=== PATIENT | female | born 1940 | race Caucasian/White ===

== ENCOUNTER 2017-11-08 05:00 | Inpatient (IN) | payer MEDICARE, BC ==
--- NOTE | 2017-11-08 05:53 | ED ---
Chest Pain HPI - General Chief Complaint: Chest Pain Stated Complaint: Cardiac Issues Time Seen by Provider: 11/08/17 05:06 Source: EMS Mode of arrival: EMS Limitations: no limitations - History of Present Illness Initial Comments: 77 years old female had a chest pain today, mid abdomen after she moved into fridge at home where he was hurting him anterior chest it was radiating down the arm and was radiating up the neck and initially she thought it was some muscle pain or the Hoffmann and she was seen at [facility] they did the troponin was elevated then they noticed that she had a pulmonary edema with the answer respiratory distress they gave her) as well as diuresed her was transferred him here to see the cardiology on arrival to the ER she is not feeling she is not having any chest pain she said a lot better oxygen saturation is fine and reactive system is unremarkable - Related Data Allergies Allergy/AdvReac Type Severity Reaction Status Date / Time codeine Allergy Unknown Verified 11/08/17 05:17 Review of Systems ROS Statement: Those systems with pertinent positive or pertinent negative responses have been documented in the HPI. ROS Other: All systems not noted in ROS Statement are negative. Past Medical History Past Medical History: Hyperlipidemia History of Any Multi-Drug Resistant Organisms: None Reported Past Surgical History: Cholecystectomy, Hysterectomy Past Psychological History: No Psychological Hx Reported Smoking Status: Former smoker Past Alcohol Use History: None Reported Past Drug Use History: None Reported General Exam - General Exam Comments Initial Comments: General: The patient is awake and alert, in no distress, and does not appear acutely ill. Skin: Skin is warm and dry and no rashes or lesions are noted. Eye: Pupils are equal, round and reactive to light, extra-ocular movements are intact; there is normal conjunctiva bilaterally. Ears, nose, mouth and throat: There are moist mucous membranes and no oral lesions. Neck: The neck is supple, there is no tenderness or JVD. Cardiovascular: There is a regular rate and rhythm. No murmur, rub or gallop is appreciated. Noticed tachycardia heart rate was 108 at the time of exam Respiratory: To auscultation bilateral, it is crackles at the both bases Gastrointestinal: Soft, non-distended, non-tender abdomen without masses or organomegaly noted. There is no rebound or guarding present. Bowel sounds are unremarkable. Back: There is no tenderness to palpation in the midline. There is no obvious deformity. Musculoskeletal: Normal ROM, no tenderness, There is no pedal edema. There is no calf tenderness or swelling. No cords were appreciated. Neurological: CN II-XII intact, Cranial nerves III through XII are intact. There are no obvious motor or sensory deficits. Coordination appears grossly intact. Speech is normal. Psychiatric: Cooperative, appropriate mood & affect, normal judgment. Limitations: no limitations Course Vital Signs 11/08/17 11/08/17 05:12 05:17 Temperature 100.4 F H Pulse Rate 108 H Respiratory 18 18 Rate Blood Pressure 199/66 O2 Sat by Pulse 97 Oximetry Disposition Clinical Impression: Myocardial infarction, Pulmonary edema Disposition: ADMITTED IP TO THIS HOSP Condition: Good Referrals: Tip Peters MD [Primary Care Provider] - 1-2 days
[2017-11-08] MEDS ORDERED: MORPHINE SULFATE 4 MG/ML SYRINGE IVP PRN (05:54)
[2017-11-08] MEDS ORDERED: NITROGLYCERIN SL TABS 0.4 MG TAB SUBLINGUAL PRN (05:54)
--- NOTE | 2017-11-08 06:12 | XR ---
EXAM: XR Chest, 1 View CLINICAL HISTORY: Pain. TECHNIQUE: Frontal view of the chest. COMPARISON: No relevant prior studies available. FINDINGS: Lungs: Mild opacities in the lower lungs (R>L). Lungs otherwise appear overall clear. Pleural space: No significant pleural effusion. No pneumothorax. Heart: Normal cardiac silhouette size. Mediastinum: Unremarkable. No mediastinal widening. Bones/joints: Osseous structures appear intact. IMPRESSION: Mild opacities in the lower lungs (R>L), possibly atelectasis, infiltrates, edema or other process. Lungs otherwise appear overall clear. Correlate clinically.
[2017-11-08] MEDS: HEPARIN SOD,PORK IN 0.45% NACL 25,000 UNIT in 0.45% NACL 1 500ML.BAG IV SCH (06:20)
[2017-11-08] MEDS: ACETAMINOPHEN TAB 500 MG TAB PO PRN (07:25)
[2017-11-08] MEDS: ASPIRIN 325 MG TAB PO SCH (08:26)
[2017-11-08] MEDS: METOPROLOL TARTRATE 25 MG TAB PO SCH ×2 (08:31→22:23)
[2017-11-08] MEDS ORDERED: LISINOPRIL 10 MG TAB PO SCH (09:00)
[2017-11-08 12:51] LABS: Troponin I 3.03 ng/mL (0.000-0.034)
[2017-11-08] MEDS ORDERED: IV FLUID CONTINUATION 1,000 ML IV ONE (14:15)
[2017-11-08] MEDS ORDERED: LIDOCAINE 2% INJ 20 MG/ML SQ ONE (14:18)
[2017-11-08] MEDS ORDERED: fentaNYL (PF) 50 MCG/ML 2 ML AMP IVP ONE (14:20)
[2017-11-08] MEDS ORDERED: MIDAZOLAM 2 MG/2 ML VIAL IVP ONE (14:20)
[2017-11-08] MEDS ORDERED: IOPAMIDOL-370 125ML BTL INJ ONE (14:52)
[2017-11-08] MEDS ORDERED: RX INFO: IV CONTRAST WAS GIVEN 1 EACH MISC MISCELLANE PRN (15:00)
--- NOTE | 2017-11-08 15:21 | CONS ---
CONSULTATION Mrs. Barone is a 77-year-old female, who is seen for cardiac evaluation. This patient was transferred from [facility]. 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 She thought it was a kind of muscle pain. Patient was seen in the emergency room at [facility]. Patient's initial troponin was mildly elevated. Chest x-ray was suggestive of questionable pneumonia or heart failure. She was given Lasix and subsequently patient had some problem with low blood pressure and she was transferred over here. At present, patient is breathing comfortably. The patient has a history of hypertension. She denies any history of angina or myocardial infarction. This patient gives a history that she had a cardiac catheterization done years several years ago which was normal. PAST MEDICAL HISTORY: Includes history of cholecystectomy, hysterectomy and hyperlipidemia. The patient is a former smoker. ALLERGIES: CODEINE. HOME MEDICATIONS: Include lisinopril 10 mg daily. Calcium vitamin, D3 and ascorbic acid. PHYSICAL EXAMINATION: At present reveals a 77-year-old female, who does not appear to be in any acute distress. Blood pressure is 108/75 mmHg. Oxygen saturation is 96%. The patient had a temperature of 100.1 in the emergency room. HEENT examination is negative. Neck is supple. There is no increase in jugular venous pressure. Both the carotid pulses are felt. There is no bruit. Chest is symmetrical. Heart: The PMI is not felt. First and second heart sounds are normal. There is no evidence of any murmur. Lungs reveals bilateral basal rales. Abdomen is soft. Liver and spleen are not enlarged. Bowel sounds heard. Extremities: Peripheral pulses are not well felt. EKG does not show any significant ST ischemic changes. Chest x-ray suggestive of possible mild congestive cardiac failure. The patient's proBNP level was elevated. Initial troponin was 0.6. The second troponin done here is 3.1. FINAL IMPRESSION: This patient is admitted with chest pain. The patient's troponin is elevated suggestive of acute coronary syndrome associated with mild heart failure. EKG does not show any acute ischemic changes. PLAN: We will check a D-dimer test as well as echocardiogram and the patient was recommended to have a cardiac catheterization for definitive diagnosis. MMODL / IJN: [id number] /
--- NOTE | 2017-11-08 16:48 | CC ---
CARDIAC CATHETERIZATION REPORT Mrs. Barone is a 77-year-old female, who was transferred from the [facility] because of the symptoms of shortness of breath and chest pain. The patient's initial troponin and BNP levels were elevated at [facility]. EKG did not show any significant abnormality. The patient has opted for the 2nd troponin was here 3. EKG was normal. Echocardiogram showed evidence of extensive anterior apical inferior apical hypokinesia. Only the basal segments are moving raising a possibility of takotsubo syndrome. In view of the abnormal troponin, the patient was recommended to have a cardiac catheterization for definitive diagnosis. PROCEDURE: The right groin was prepped and draped in the usual manner and the skin was infiltrated with 2% Xylocaine. The right femoral artery was entered using Seldinger technique. A #6-Ukrainian sheath was placed in. Selective coronary angiography was then performed in multiple projections and the left ventriculography was performed in 30 degree PALMA projection. Patient tolerated the procedure well. HEMODYNAMICS: Left ventricular end-diastolic pressure is 20 to 24 mmHg prior to angiography. No gradient is noted across the aortic valve. SELECTIVE CORONARY ANGIOGRAPHY: There is kyhm-er-oeds origin of the LAD and circumflex coronary artery. The LAD is a good caliber blood vessel. The mid LAD has about 40% stenosis with a good AUGUSTUS-3 flow noted. Circumflex coronary artery gives rise to good size PLV branch. Circumflex coronary artery and its branches are normal. Right coronary artery is a normal caliber blood vessel and gives rise to the posterior descending artery and it is normal. Left ventriculography reveals extensive anterior apical and inferior apical hypokinesia with ejection fraction in the range of 25-30%. FINAL IMPRESSION: This study shows about 40% stenosis in the mid LAD. This does not correspond to the wall motion abnormality noted in the left ventriculogram and echocardiography and this is suggestion of stress cardiomyopathy. Circumflex and right coronary artery is normal. RECOMMENDATIONS: We will review the films with Dr. Jessenia Ocampo and we will continue patient on medical treatment. MMODL / IJN: [id number] /
[2017-11-08 18:25] LABS: Creatine Kinase MB 4.1 ng/mL (0.0-2.4)
[2017-11-08] MEDS: cefTRIAXone IN SWFI 2,000 MG/20 ML SYRINGE IVP SCH (18:47)
[2017-11-08] MEDS: ATORVASTATIN 40 MG TAB PO SCH (22:23)
[2017-11-08] MEDS: SODIUM CHLORIDE 0.9% 1,000 ML IV SCH (22:23)
--- NOTE | 2017-11-08 23:41 | P.HPIM ---
History of Present Illness H&P Date: 11/08/17 Chief Complaint: Chest pain Patient is a 77 old female with a known history of hypertension, diabetes type 2 , hyperlipidemia and osteoarthritis came to ER with complaints of chest pain started day before yesterday and got worse last night. Chest pain is mainly lower retrosternal and epigastric area. Patient says that pain started when she moved present to her home. Since then she's been having anterior retrosternal chest pain radiating down the both arms and neck and felt like throbbing pain. Patient initially presented to [facility] where she had elevated troponin and also had pulmonary edema with respiratory distress. She was given a dose of Lasix and was transferred to [facility] for further evaluation by cardiology. Patient says that chest pain was relieved after she was given a second dose of nitroglycerin in the ER. Otherwise patient has been having cough especially in the morning for the past 1 month. Denied any recent antibiotic use. No fever/chills. Cough and pain worsens with deep breathing. Denied any nausea vomiting or abdominal pain. No dysuria or hematuria. Chest x-ray showed mild opacities in the lower lungs right greater than left, possible atelectasis, infiltrate/edema Patient does have history of cardiac catheterization which was normal in 2008. Patient does have history of smoking. EKG showed no ST-T elevation. D-dimer is not elevated. Patient was seen by cardiology and was taken to cardiac catheterization. Review of Systems Constitutional: Patient denies any fever or chills . No generalized weakness or weight loss. Abdomen: Patient denied nausea vomiting and diarrhea and abdominal pain. Cardiovascular: Chest pain with deep breathing. No leg swelling. No shortness of breath Respiratory: patient denied any cough is from production. No shortness of breath Neurologic: Patient denied any numbness or tingling headache. Musculoskeletal: Patient denies any complaints of joint swelling or deformity. Skin: Negative Psychiatric: Negative Endocrine: No heat or cold intolerance. No recent weight gain. Genitourinary: No dysuria or hematuria. All other 14 point ROS negative except the above Past Medical History Past Medical History: Diabetes Mellitus, Eye Disorder, Hyperlipidemia, Hypertension, Osteoarthritis (OA), Thyroid Disorder Additional Past Medical History / Comment(s): Macular degeneration bilaterally, thyroid nodules, borderline diabetes, migraines years ago. History of Any Multi-Drug Resistant Organisms: None Reported Past Surgical History: Appendectomy, Cholecystectomy, Heart Catheterization, Hysterectomy Additional Past Surgical History / Comment(s): 2009 cardiac cath-normal, colonoscopies-last done 05/2017, bilateral cataract removal/lens implants. Past Anesthesia/Blood Transfusion Reactions: No Reported Reaction Smoking Status: Former smoker - Past Family History Father Family Medical History: Diabetes Mellitus Additional Family Medical History / Comment(s): Father after gangrene legs at the age of 76 or 77yrs. Mother Family Medical History: Myocardial Infarction (ID) Additional Family Medical History / Comment(s): Mother of a ID at the age of 40yrs. Medications and Allergies Home Medications Medication Instructions Recorded Confirmed Type Ascorbic Acid [Vitamin C] 1,000 mg PO DAILY 11/08/17 11/08/17 History Calcium Carbonate [Calcium] 600 mg PO DAILY 11/08/17 11/08/17 History Cholecalciferol [Vitamin D3] 1,000 unit PO DAILY 11/08/17 11/08/17 History Lisinopril [Zestril] 10 mg PO DAILY 11/08/17 11/08/17 History Multivitamins, Thera [Multivitamin 1 tab PO DAILY 11/08/17 11/08/17 History (formulary)] Vitamin E 1,000 unit PO DAILY 11/08/17 11/08/17 History Vits A,C,E/Lutein/Minerals 1 tab PO DAILY 11/08/17 11/08/17 History [Ocuvite with Lutein Tablet] Allergies Allergy/AdvReac Type Severity Reaction Status Date / Time codeine AdvReac Rapid Verified 11/08/17 07:10 Heart Rate Physical Exam Vitals: Vital Signs Temp Pulse Resp BP Pulse Ox 11/08/17 10:31 99.2 F 93 18 108/75 96 11/08/17 09:09 88 18 96/53 94 L 11/08/17 08:29 100.2 F H 88 16 91/61 96 11/08/17 07:07 100.1 F H 98 18 109/66 95 11/08/17 06:23 98.7 F 97 18 100/63 95 11/08/17 05:17 18 11/08/17 05:12 100.4 F H 108 H 18 199/66 97 Intake and Output 11/07/17 11/08/17 11/08/17 22:59 06:59 14:59 Other: Weight 57.153 kg PHYSICAL EXAMINATION: Patient is lying in the bed comfortably, no acute distress, awake alert and oriented.. HEENT: Normocephalic. Neck is supple. Pupils reactive. Nostrils clear. Oral cavity is moist. Ears reveal no drainage. Neck reveals no JVD, carotid bruits, or thyromegaly. CHEST EXAMINATION: Trachea is central. Mild tenderness at the xiphisternal area. Symmetrical expansion. Lung clemente clear to auscultation and percussion. CARDIAC: Normal S1, S2 with no gallops. No murmurs ABDOMEN: Soft. Bowel sounds normal. No organomegaly. No abdominal bruits. Extremities: reveal no edema. No clubbing or cyanosis Neurologically awake, alert, oriented x3 with well-coordinated movements. No focal deficits noted Skin: No rash or skin lesions. Psychiatric: Cooperative. Nonsuicidal Musculoskeletal: No joint swelling or deformity. Normal range of motion. Results Labs: Abnormal Lab Results - Last 24 Hours (Table) 11/08/17 Range/Units 05:16 Troponin I 3.060 H* (0.000-0.034) ng/mL Thrombosis Risk Factor Assmnt - DVT/VTE Prophylaxis DVT/VTE Prophylaxis: Pharmacologic Prophylaxis ordered - Choose All That Apply Any of the Below Risk Factors Present?: Yes Each Factor Represents 1 point: Acute ID, Heart failure (<1month), Obesity (BMI >25) Other Risk Factors: Yes Each Risk Factor Represents 3 Points: Age 75 years or older Other congenital or acquired thrombophilia - If yes, enter type in comment: No Thrombosis Risk Factor Assessment Total Risk Factor Score: 6 Thrombosis Risk Factor Assessment Level: High Risk Assessment and Plan Assessment: Acute non-ST elevated ID with elevated troponin level Bibasilar infiltrates with possible pneumonia. Right great than left Hypertension. Currently hypotensive Diabetes type 2 Hyperlipidemia Osteoarthritis Plan: Patient will be continued on telemetry monitoring. Patient was seen by cardiology and was taken to cardiac catheterization. Patient will be converted on heparin drip and antibiotics. Pain management. Continue with aspirin statins and low-dose beta blockers. Further recommendations based on the clinical course. Time with Patient: Greater than 30
[2017-11-09] MEDS: ACETAMINOPHEN TAB 500 MG TAB PO PRN (00:53)
[2017-11-09 06:09] LABS: Basophils % (A) 1 %; Eosinophils # (A) 0.1 k/uL (0-0.7); Eosinophils % (A) 1 %; HCT 34.2 % (34.0-46.0); HGB 11.2 gm/dL (11.4-16.0); Lymphocytes # (A) 1.7 k/uL (1.0-4.8); Lymphocytes % (A) 24 %; MCH 29.4 pg (25.0-35.0); MCHC 32.7 g/dL (31.0-37.0); MCV 89.9 fL (80.0-100.0); Mean Platelet Volume 7.1; Monocytes # (A) 0.4 k/uL (0-1.0); Monocytes % (A) 6 %; Neutrophils # (A) 4.6 k/uL (1.3-7.7); Neutrophils % (A) 66 %; Platelet Count 287 k/uL (150-450); RBC 3.81 m/uL (3.80-5.40); RDW 12.8 % (11.5-15.5)
[2017-11-09 06:23] LABS: Albumin 2.9 g/dL (3.5-5.0); Calcium 8.6 mg/dL (8.4-10.2); Potassium 3.9 mmol/L (3.5-5.1); Total Bilirubin 0.6 mg/dL (0.2-1.3); Total Protein 5.5 g/dL (6.3-8.2)
[2017-11-09] MEDS ORDERED: MORPHINE ORAL SOLN 10 MG/5 ML CUP PO PRN (08:29)
[2017-11-09] MEDS ORDERED: FAMOTIDINE 20 MG TAB PO SCH (09:00)
[2017-11-09] MEDS: METOPROLOL TARTRATE 25 MG TAB PO SCH ×2 (09:04→21:33)
[2017-11-09] MEDS: ASPIRIN 325 MG TAB PO SCH (09:04)
[2017-11-09] MEDS: LISINOPRIL 2.5 MG TAB PO SCH (09:04)
[2017-11-09] MEDS: AZITHROMYCIN 500 MG TAB PO SCH (09:04)
[2017-11-09] MEDS: HEPARIN SOD,PORK IN 0.45% NACL 25,000 UNIT in 0.45% NACL 1 500ML.BAG IV SCH (10:40)
[2017-11-09] MEDS: SODIUM CHLORIDE 0.9% 1,000 ML IV SCH (11:33)
[2017-11-09] MEDS: cefTRIAXone IN SWFI 2,000 MG/20 ML SYRINGE IVP SCH (11:36)
--- NOTE | 2017-11-09 12:01 | ECHOF ---
Referral Reason:chest pain- per physician order MEASUREMENTS -------- HEIGHT: 147.3 cm WEIGHT: 57.2 kg BP: 108/75 RVIDd: 2.1 cm (< 3.3) IVSd: 1.1 cm (0.6 - 1.1) LVIDd: 4.5 cm (3.9 - 5.3) LVPWd: 1.2 cm (0.6 - 1.1) IVSs: 1.1 cm LVIDs: 4.3 cm LVPWs: 1.2 cm LAESV Index (A-L): 27.45 ml/m Ao Diam: 2.7 cm (2.0 - 3.7) AV Cusp: 1.5 cm (1.5 - 2.6) LA Diam: 3.8 cm (2.7 - 3.8) EPSS: 1.4 cm MV E Ezio: 0.72 m/s MV DecT: 296 ms MV A Ezio: 0.94 m/s MV E/A Ratio: 0.76 RAP: 5.00 mmHg RVSP: 38.77 mmHg MV EF SLOPE: 95.17 mm/s (70 - 150) MV EXCURSION: 1.38 cm (> 18.000) FINDINGS -------- Sinus rhythm. This was a technically good study. The left ventricular size is normal. Left ventricular wall thickness is normal. Overall left vent ricular systolic function is severely impaired with, an EF < 20%. Basal Segments Caesar only. The right ventricle is normal in size and function. LA is midly dilated 29-33ml/m2. The right atrium is normal in size. Aortic valve is trileaflet and is mildly thickened. There is no evidence of aortic regurgitation. There is no evidence of aortic stenosis. The mitral valve leaflets are mildly thickened. Snsa-yw-[id number] mitral regurgitation is present. Moderate tricuspid regurgitation present. There is mild pulmonary hypertension. The right ventric ular systolic pressure, as measured by Doppler, is 38.77mmHg. Trace/mild (physiologic) pulmonic regurgitation. The aortic root size is normal. Normal inferior vena cava with normal inspiratory collapse consistent with estimated right atrial pre ssure of 5 mmHg. There is no pericardial effusion. CONCLUSIONS -------- 1. Sinus rhythm. 2. This was a technically good study. 3. The left ventricular size is normal. 4. Left ventricular wall thickness is normal. 5. Overall left ventricular systolic function is severely impaired with, an EF < 20%. 6. Basal Segments Caesar only. 7. LA is midly dilated 29-33ml/m2. 8. Aortic valve is trileaflet and is mildly thickened. 9. The mitral valve leaflets are mildly thickened. 10. Lcfr-hn-ubhlfmhi mitral regurgitation is present. 11. Moderate tricuspid regurgitation present. 12. There is mild pulmonary hypertension. 13. The right ventricular systolic pressure, as measured by Doppler, is 38.77mmHg. 14. Trace/mild (physiologic) pulmonic regurgitation. 15. The aortic root size is normal. 16. There is no pericardial effusion. [employer]INE JOB SETTER: Enzo Conway RDCS
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
[2017-11-09 14:45] VITALS: BMI 27.0
[2017-11-09] MEDS: ATORVASTATIN 40 MG TAB PO SCH (21:33)
[2017-11-10] MEDS: AZITHROMYCIN 500 MG TAB PO SCH (08:07)
[2017-11-10] MEDS: METOPROLOL TARTRATE 25 MG TAB PO SCH (08:08)
[2017-11-10] MEDS: LISINOPRIL 2.5 MG TAB PO SCH (08:08)
[2017-11-10] MEDS ORDERED: ASPIRIN 81 MG PO SCH (09:00)
[2017-11-10] MEDS ORDERED: FAMOTIDINE 20 MG TAB PO SCH (09:00)
[2017-11-10 09:53] VITALS: RESP 16
[2017-11-10 11:28] VITALS: BP 107/64; PULSE 74; TEMP 98.8
[2017-11-10] MEDS ORDERED: FUROSEMIDE 20 MG TAB PO SCH (12:30)
[2017-11-10] MEDS: cefTRIAXone IN SWFI 2,000 MG/20 ML SYRINGE IVP SCH (12:31)
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
--- NOTE | 2017-11-15 14:52 | CDI ---
Documentation Clarification Form Date: 11/15/2017 12:00:00 AM From: KASSY Henao; Renee Wright Collar Feller Phone: If you have a question about this query, please contact Renee Wright Collar Feller at [phone] between 8am and 5pm. Admit Date: 11/08/2017 5:54:00 AM Patient Name: Elana Barone Visit Number: [id number] Discharge Date: 11/10/2017 ATTENTION: The Clinical Documentation Specialists (CDI) and [facility] Coding Staff appreciate your assistance in clarifying documentation. Please respond to the clarification below the line at the bottom and electronically sign. The CDI & [facility] Coding staff will review the response and follow-up if needed. Please note: Queries are made part of the Legal Health Record. If you have any questions, please contact the author of this message via ITS. Dr. Pedro Pablo Max This patient was transferred to [facility] due to chest pain. On presentation, troponin 2.000, 3.030, 3.060 and acute OH documented. Chest x-ray confirmed pulmonary edema. Cardiac cath was performed which showed 40% stenosis of the LAD which did not correspond to the wall motion abnormality on the left ventriculogram and echocardiogram, suggestive of stress cardiomyopathy. Cardiology note 11/10, suggestive of stress cardiomyopathy, congestive heart failure, systolic, acute. In your professional opinion, can you please clarify if the presenting symptoms are suggestive of? Acute non-ST elevated OH Stress cardiomyopathy Other, please specify Unable to determine Stress cardiomyopathy MTDD
== END 2017-11-10 14:48 | disposition home or self-care (01) | DRG 286 ==
LOC: EC 05:00 → 6SEL 05:54
PROVIDERS: ADMIT Hospitalist; ATTEND Hospitalist
PROC: 4A023N7 Measurement of Cardiac Sampling and Pressure, Left Heart, Percutaneous Approach (ICD-10-PCS; principal; 2017-11-08 14:07)
PROC: B2111ZZ Fluoroscopy of Multiple Coronary Arteries using Low Osmolar Contrast (ICD-10-PCS; principal; 2017-11-08 14:07)
PROC: B2151ZZ Fluoroscopy of Left Heart using Low Osmolar Contrast (ICD-10-PCS; principal; 2017-11-08 14:07)
DX: I51.81 Takotsubo syndrome (principal); I50.21 Acute systolic (congestive) heart failure; E11.9 Type 2 diabetes mellitus without complications; E78.5 Hyperlipidemia, unspecified; H35.30 Unspecified macular degeneration; I25.10 Atherosclerotic heart disease of native coronary artery without angina pectoris; Z96.1 Presence of intraocular lens; M19.90 Unspecified osteoarthritis, unspecified site; Z79.899 Other long term (current) drug therapy; Z82.49 Family history of ischemic heart disease and other diseases of the circulatory system; Z83.3 Family history of diabetes mellitus; Z87.891 Personal history of nicotine dependence; Z90.49 Acquired absence of other specified parts of digestive tract; Z90.710 Acquired absence of both cervix and uterus; Z98.42 Cataract extraction status, left eye; Z98.41 Cataract extraction status, right eye; I10 Essential (primary) hypertension
CPT/HCPCS: 36415; 71045; 80053; 80061; 82550; 82553; 84484; 85025; 85379; 85730; 93306; 93458; 96365; 96366; 96372; 96375; 99285